=== PATIENT | female | born 1965 | race American Indian/Alaskan Native ===

== ENCOUNTER 2017-10-30 17:23 | Emergency (ER) | payer SELFPAY ==
[2017-10-30] MEDS ORDERED: NORCO 5/325 ONE (19:20)
[2017-10-30] MEDS ORDERED: NORCO 5/325 PO ONE (19:24)
--- NOTE | 2017-10-30 21:37 | Emergency Department Report ---
- General Chief complaint: Skin/Abscess/Foreign Body Stated complaint: BOIL ON BUTTOCK Time Seen by Provider: 10/30/17 21:30 Source: patient Mode of arrival: Ambulatory Limitations: No Limitations - History of Present Illness Initial comments: 52-year-old -Citizen Of [place] female comes in reporting an abscess in her left buttocks times one and a half weeks. Patient reports that the abscess is draining but still gets hard palpitation. Patient reports that her pains a 10 out of 10. Patient reports that she's been using warm compresses and it has been draining. This is the first time she's ever had this. She admits to chills denies fever mist and nauseated of denies vomiting. She does admit to some lightheadedness. She has a past medical history of thyroid with a thyroidectomy. Patient denies any allergies to any medications. MD complaint: abscess/boil -: week(s) (1.5) Location: buttocks (left ) Severity: severe Severity scale (0 -10): 10 Quality: aching, constant Consistency: constant Improves with: medication Worsens with: palpation, movement Associated symptoms: chills, nausea Treatments Prior to Arrival: attempted to drain pus at - Related Data Previous Rx's Medication Instructions Recorded Last Taken Type Ibuprofen [Motrin 800 MG tab] 800 mg PO Q8HR PRN #30 tablet 10/30/17 Unknown Rx Sulfamethoxazole/Trimethoprim 1 each PO BID #20 tablet 10/30/17 Unknown Rx [Bactrim Ds Tablet] Allergies Allergy/AdvReac Type Severity Reaction Status Date / Time No Known Allergies Allergy Unverified 10/30/17 17:32 Abscess Boil HPI - HPI Chief Complaint: Skin/Abscess/Foreign Body Stated Complaint: BOIL ON BUTTOCK Time Seen by Provider: 10/30/17 21:30 Home Medications: Previous Rx's Medication Instructions Recorded Last Taken Type Ibuprofen [Motrin 800 MG tab] 800 mg PO Q8HR PRN #30 tablet 10/30/17 Unknown Rx Sulfamethoxazole/Trimethoprim 1 each PO BID #20 tablet 10/30/17 Unknown Rx [Bactrim Ds Tablet] Allergies/Adverse Reactions: Allergies Allergy/AdvReac Type Severity Reaction Status Date / Time No Known Allergies Allergy Unverified 10/30/17 17:32 ED Review of Systems ROS: Stated complaint: BOIL ON BUTTOCK Other details as noted in HPI Constitutional: chills Eyes: denies: eye pain, eye discharge, vision change ENT: denies: ear pain, throat pain Respiratory: denies: cough, shortness of breath, wheezing Cardiovascular: denies: chest pain, palpitations Endocrine: no symptoms reported Gastrointestinal: nausea Genitourinary: denies: urgency, dysuria, discharge Musculoskeletal: denies: back pain, joint swelling, arthralgia Skin: lesions Neurological: denies: headache, weakness, paresthesias Psychiatric: denies: anxiety, depression Hematological/Lymphatic: denies: easy bleeding, easy bruising ED Past Medical Hx - Past Medical History Additional medical history: THYROID - Surgical History Additional Surgical History: THYROIDECTOMY - Social History Smoking Status: Never Smoker Substance Use Type: None - Medications Home Medications: Home Medications Medication Instructions Recorded Confirmed Last Taken Type Ibuprofen [Motrin 800 MG tab] 800 mg PO Q8HR PRN #30 tablet 10/30/17 Unknown Rx Sulfamethoxazole/Trimethoprim 1 each PO BID #20 tablet 10/30/17 Unknown Rx [Bactrim Ds Tablet] ED Physical Exam - General Limitations: No Limitations - ENT ENT exam: Present: mucous membranes moist - Respiratory Respiratory exam: Present: normal lung sounds bilaterally. Absent: respiratory distress - Cardiovascular Cardiovascular Exam: Present: regular rate, normal rhythm. Absent: systolic murmur, diastolic murmur, rubs, gallop - GI/Abdominal GI/Abdominal exam: Present: soft, normal bowel sounds - Back Exam Back exam: Present: normal inspection - Neurological Exam Neurological exam: Present: alert, oriented X3 - Psychiatric Psychiatric exam: Present: normal affect, normal mood - Skin Skin exam: Present: other (left gluteal middle with indurated mildly erythematous tender to palpate approximately 8 cm x 4 cm x 2 cm deep with 0.5 cm opening.) ED Course Vital Signs 10/30/17 17:32 Temperature 97.8 F Pulse Rate 99 H Respiratory 18 Rate Blood Pressure 144/87 O2 Sat by Pulse 92 Oximetry - I & D Left Buttocks Blade Size: 11 I & D Procedure: betadine prep, sterile drapes applied, sterile dressing applied , gauze wick placed Progress: Patient tolerated procedure well ED Medical Decision Making - Medical Decision Making Patient's been evaluated by this provider fast track. I discussed the patient will make an attempt to incision and drain. Discussed the patient we will place her antibiotics and pain medication discussed the patient that she will need to return in 2 days to have packing removal into reevaluate wound. Patient verbalized understanding. Critical care attestation.: If time is entered above; I have spent that time in minutes in the direct care of this critically ill patient, excluding procedure time. ED Disposition Clinical Impression: Abscess of buttock, left Disposition: [id number] TO HOME OR SELFCARE Is pt being admited?: No Does the pt Need Aspirin: No Condition: Stable Instructions: Abscess (ED) Additional Instructions: Complete antibiotics as prescribed. You need to return back to the emergency room in 2 days to have packing removal and reevaluation of wound. Take ibuprofen for pain as needed. Change bandage daily please try to avoid pulling out the packing. Keep skin clean and dry. Prescriptions: Ibuprofen [Motrin 800 MG tab] 800 mg PO Q8HR PRN #30 tablet PRN Reason: Pain Sulfamethoxazole/Trimethoprim [Bactrim Ds Tablet] 1 each PO BID #20 tablet Referrals: PRIMARY CARE, [Primary Care Provider] - 3-5 Days [facility] [Provider Group] - 3-5 Days Forms: Work/School Release Form(ED), Accompanied Note
[2017-10-30 21:51] VITALS: BP 126/71
== END 2017-10-30 21:49 | disposition home or self-care (01) ==
LOC: ED 17:23
DX: L02.31 Cutaneous abscess of buttock (principal)

== ENCOUNTER 2017-11-02 00:44 | Emergency (ER) | payer SELFPAY ==
[2017-11-02 02:24] VITALS: BP 137/92
== END 2017-11-02 05:00 | disposition left against medical advice (07) ==
LOC: ED 00:44
DX: Z48.00 Encounter for change or removal of nonsurgical wound dressing (principal); Z53.21 Procedure and treatment not carried out due to patient leaving prior to being seen by health care provider